=== PATIENT | female | born 1950 | race Caucasian/White ===

== ENCOUNTER → 2016-07-08 | Outpatient (CLI) | payer OTHER | LOC: RAD 10:45 | PROVIDERS: ATTEND Family Medicine | DX: Z12.31 Encounter for screening mammogram for malignant neoplasm of breast (principal) ==

== ENCOUNTER 2016-08-23 06:59 | Day surgery (SDC) | payer OTHER ==
[~2016-08-23] VITALS: Ht 160 cm; Wt 72.0 kg
[~2016-08-23 06:59] MED LIST: ATOR20TA PO; CALC600T12 PO; LACTATED RINGERS 1,000 ML IV SCH; SERT50TA9 PO; SODIUM CHLORIDE FLUSH 3 ML SYR IV PRN; [UNRECOGNIZED DRUG - CODE] PO
--- OUTSIDE RECORDS SUMMARY | 2016-08-23 07:03 | XMS REPORT | Continuity of Care Document ---
Author Author [facility] Address Unknown Phone Unavailable Allergies Medications Problems Date Dx Coded Attending Type Code Diagnosis Diagnosed By 09/23/2014 FLY CAMERON MD Ot 611.79 09/23/2014 FLY CAMERON MD Ot V76.12 10/07/2014 FLY CAMERON MD Ot 793.82 03/17/2016 FLY CAMERON MD Ot 793.82 INCONCLUSIVE MAMMOGRAM 03/17/2016 FLY CAMERON MD Ot 793.82 INCONCLUSIVE MAMMOGRAM 07/16/2016 FLY CAMERON MD Ot Z12.31 ENCNTR SCREEN MAMMOGRAM FOR MALIGNANT NE 07/29/2016 FLY CAMERON MD, Ot Z12.31 ENCNTR SCREEN MAMMOGRAM FOR MALIGNANT NE Procedures Results Encounters ACCT No. Visit Date/Time Discharge Status Pt. Type Provider Facility Loc./Unit Complaint [id number] 09/17/2014 08:54:00 2014 23:59:59 CLS Outpatient RAKESH STILL [facility] RAD DENSITY LEFT BREAST [id number] 09/04/2014 10:10:00 2014 23:59:59 CLS Outpatient RAKESH STILL [facility] RAD [id number] 03/22/2013 10:15:00 2012 23:59:59 CLS Outpatient [id number] 08/23/2016 08:15:00 PEN Preadmit SHERMAN STILL, ANASTASIYA [facility] ASC COLONOSCOPY [id number] 07/08/2016 10:45:00 ACT Outpatient RAKESH STILL, [facility] RAD SCREENING
[2016-08-23 07:11] VITALS: BP 167/91
[2016-08-23] MEDS ORDERED: GLUC-203 PO (07:20)
[2016-08-23] MEDS ORDERED: MAGN300C PO (07:20)
[2016-08-23] MEDS ORDERED: UBID100C8 PO (07:20)
[2016-08-23] MEDS ORDERED: ALFENTANIL 500 MCG/ML (ALFENTA) 5 ML AMP IV ONE ×2 (08:02)
[2016-08-23] MEDS ORDERED: MIDAZOLAM 2 MG/2 ML (VERSED) VIAL ONE (08:02)
[2016-08-23] MEDS ORDERED: PROPOFOL 20 ML IV ONE (08:03)
[2016-08-23 08:52] VITALS: BP 144/90
[2016-08-23 09:16] VITALS: BP 145/85
--- NOTE | 2016-08-23 11:50 | OPERATIVE REPORT ---
DATE OF OPERATION: 08/23/2016 PRE-OPERATIVE DIAGNOSIS: Colon screening POST-OPERATIVE DIAGNOSIS: Normal colon OPERATIVE PROCEDURE: Total colonoscopy SURGEON: Dilshad Waterman MD ANESTHESIA: IV conscious sedation, Monitored Anesthesia Services POSITION: Left lateral decubitus FINDINGS: 1. Normal colon. 2. Good prep. 3. A few anal skin tags. OPERATIVE NOTE: Following satisfactory induction of analgesia a digital rectal exam was performed with the above findings noted. No rectal mass was noted. Good sphincter tone was present. The skin tags were not inflamed. Next the colonoscope was introduced per rectum and advanced under CO2 insufflation and direct vision to the cecum. The cecum was identified by convergence of the teniae, ileocecal valve, and palpation of the right lower quadrant. The above findings were noted and passenger relations representative photographs were obtained. The above areas were again carefully inspected as the scope was slowly withdrawn. Retroflexed view of the rectum was normal. Excess insufflated CO2 was evacuated and the scope removed. The patient tolerated the procedure well and transferred to recovery in stable condition. RECOMMENDATIONS: In the absence of symptoms, the patient should have repeat screening colonoscopy in 10 years.
== END 2016-08-23 09:30 | disposition home or self-care (01) ==
LOC: ASC 06:59
PROVIDERS: ATTEND Surgery
DX: Z12.11 Encounter for screening for malignant neoplasm of colon (principal); K64.4 Residual hemorrhoidal skin tags; F41.9 Anxiety disorder, unspecified; E78.5 Hyperlipidemia, unspecified
CPT/HCPCS: 45378; J2250; J7120